=== PATIENT | female | born 1980 | race Caucasian/White ===

== ENCOUNTER 2016-09-13 15:14 | Emergency (ER) | payer OTHER | END 2016-09-13 17:22 | disposition home or self-care (01) | LOC: CED 15:14 | DX: T40.1X1A Poisoning by heroin, accidental (unintentional), initial encounter (principal); J45.909 Unspecified asthma, uncomplicated; F17.200 Nicotine dependence, unspecified, uncomplicated | CPT/HCPCS: 99282 ==